=== PATIENT | male | born 1955 | race Caucasian/White ===

== ENCOUNTER 2024-05-01 14:11 | Emergency (ER) | payer MEDICARE, OTHER, SELFPAY ==
[2024-05-01] VITALS (14 sets, daily range): BP systolic 103–149; BP diastolic 54–64; PULSE 71–128; RESP 16–24; TEMP 36.6; O2SAT 24–96
--- NOTE | ~2024-05-01 | CT_ITS ---
EXAMINATION: CT brain wo con DATE: 05/01/2024 16:29 INDICATION: Right-sided spasm. TECHNIQUE: Computed tomography (CT) of the head was performed without intravenous contrast. The mA wa s adjusted according to patient size. Iterative reconstruction technique was employed. The dose-lengt h product was 681.00 mGy-cm. COMPARISON: None FINDINGS: There is no intracranial hemorrhage or acute ischemic infarct. There is a tubulonodular per icallosal lipoma. There are areas of low attenuation in the cerebral white matter with an anterior pr edominance, left worse than right. The ventricles are normal in size. There is mild mucosal thickeni ng in the ethmoid sinuses. The mastoid air cells are normal. The orbits are normal. IMPRESSION: 1. Tubulonodular pericallosal lipoma. 2. Abnormal anterior cerebral white matter, left worse than right. The differential diagnosis include s chronic small vessel ischemic disease, vasogenic edema, and cortical dysplasia. Consider brain MRI without and with contrast. Reviewed, dictated and finalized at location E. IMPRESSION: 1. Tubulonodular pericallosal lipoma. 2. Abnormal anterior cerebral white matter, left worse than right. The differen tial diagnosis includes chronic small vessel ischemic disease, vasogenic edema, and cortical dysplasia. Consider brain MRI without and with contrast.
--- NOTE | ~2024-05-01 | XR_ITS ---
EXAMINATION: XR chest 1V portable DATE: 05/01/2024 15:57 INDICATION: Right-sided spasm. TECHNIQUE: A single frontal view of the chest was obtained on 2 radiographs. COMPARISON: None. FINDINGS: There is mild atelectasis in left lower lung zone. No pleural effusion or pneumothorax. The heart size is normal. IMPRESSION: 1. Mild atelectasis in left lower lung zone. Reviewed, dictated and finalized at location E.
--- NOTE | 2024-05-01 15:17 | ED.GENADULT ---
HPI - General Adult General Chief complaint: Unspecified Stated complaint: sent by pcp for admission, cant walk Time Seen by Provider: 05/01/24 15:17 Source: patient and family Mode of arrival: ambulatory Limitations: no limitations History of Present Illness HPI narrative: PATIENT CAME FROM THE NEUROLOGIST OFFICE INCREASE SPASM OF THE RIGHT SIDE OF HIS BODY INCLUDING RIGHT UPPER EXTREMITY, RIGHT SIDE OF THE TRUNK, AND RIGHT LOWER EXTREMITY. PATIENT HAD THIS HISTORY SINCE 2019, STARTED ON KEP[place] 500 B.I.D. WITH REMARKABLE IMPROVEMENT, THE SPASM STARTED COMING BACK OVER THE LAST 5 DAYS AND GRADUALLY GETTING WORSE LATELY ON AVERAGE 1 EPISODE EVERY 20 MINUTES AND USUALLY LAST UP TO 2 MINUTES. PATIENT REPORTS IF HE GETS A SPELL OF SPASM WHILE STANDING OR WALKING HE COLLAPSE AND CANNOT MAINTAIN STANDING ON HIS RIGHT FOOT. OTHERWISE HIS WALKING IS NORMAL PRIOR AND AFTER THE SPELL. HE DENIES ANY FEVER, CHILLS, NAUSEA, VOMITING, PAIN OR FOCAL NEURO DEFICIT. Related Data Home Medications Medication Instructions Recorded Confirmed calcitriol 0.25 mcg capsule 0.25 mcg PO DAILY 06/07/21 10/30/23 cyanocobalamin (vitamin B-12) 1,000 mcg PO BID 06/07/21 10/30/23 1,000 mcg capsule doxazosin 8 mg tablet 8 mg PO DAILY 06/07/21 10/30/23 ergocalciferol (vitamin D2) 1,250 1,250 mcg PO DAILY 06/07/21 10/30/23 mcg (50,000 unit) capsule furosemide 40 mg tablet 40 mg PO DAILY 06/07/21 10/30/23 lisinopril 20 mg tablet 20 mg PO BID 06/07/21 10/30/23 clonidine HCl 0.2 mg tablet 0.2 mg PO QHS 06/15/22 10/30/23 amlodipine 5 mg tablet 10 mg PO DAILY 12/11/22 10/30/23 chondroitin sulfate A 250 mg mg PO BID 12/11/22 10/30/23 capsule glucosamine sulfate 500 mg tablet 500 mg PO DAILY 12/11/22 10/30/23 (Glucosamine) carvedilol 12.5 mg tablet 12.5 mg PO BID 10/30/23 10/30/23 Allergies Allergy/AdvReac Type Severity Reaction Status Date / Time surgical tape Allergy Intermediate rash Uncoded 05/01/24 14:18 Review of Systems Review of Systems: All systems reviewed & are unremarkable except as noted in HPI and below PMFSH Past Medical History Medical History History of pulmonary embolus (PE) 2016 History of renal calculi 1991 Normal colonoscopy 11/10 Repeat 11/20 Family History Family History Father Malignant neoplasm of prostate Social History Social History Smoking status: Never smoker Second hand tobacco smoke exposure: No Alcohol intake: never Substance use: never Substance use type: does not use Do You Feel Safe in your Home?: Yes Lack of Transportation: No Lack of Food: Never True Current Housing: I Have Housing Concerned About Future Housing: No Difficulty Paying Gas/Electric Bills: No Difficulty Paying for Meds: No Currently Unemployed: No Education: Bachelor's Degree Difficulty w/ Childcare or Family Care: No Living arrangements: with family Occupation/Education: retired Gender identity (if verbalized by the patient): Male Sexual Orientation (if Verbalized by the Patient): Straight or Heterosexual Spiritual care concerns: No Agree to blood products: Yes Exam Narrative: GENERAL APPEARANCE: WELL-DEVELOPED, WELL-NOURISHED SKIN: NORMAL COLOR HEAD: NORMOCEPHALIC, NONTRAUMATIC EYES: CLEAR CONJUNCTIVA ENT: OROPHARYNX NORMAL, EARS NORMAL, NOSE NORMAL NECK: SUPPLE, NONTENDER CHEST AND RESPIRATORY: AIRWAY PATENT, NO RESPIRATORY DISTRESS, NO ACCESSORY MUSCLE USE HEART: REGULAR RATE/RHYTHM ABDOMEN: SOFT, NONTENDER, NO ORGANOMEGALY, QUIET BOWEL SOUNDS VASCULAR: NORMAL PERIPHERAL PULSES, NORMAL CAPILLARY REFILL. MUSCULOSKELETAL: NORMAL RANGE OF MOTION, NONTENDER BACK NEUROLOGIC: ALERT AND ORIENTED ?3, SOFTWARE CONFIGURATION SPECIALIST IS NORMAL TESTED, NO GROSS MOTOR DEFICIT
--- NOTE | 2024-05-01 15:28 | ECG_ITS ---
Test Date: 2024-05-01 15:47:34 Measurements Intervals [place] Rate: 62 P: 39 PA: 214 QRS: -21 QRSD: 103 T: 3 QT: 426 QTc: 433 Interpretive Statements SINUS RHYTHM WITH SINUS ARRHYTHMIA WITH FIRST DEGREE AV BLOCK VOLTAGE CRITERIA FOR LVH BORDERLINE R WAVE PROGRESSION, ANTERIOR LEADS BORDERLINE ST-T WAVE ABNORMALITY- INFERIOR LEADS BASELINE ARTIFACT- I, III, AVR, AVL, AVF BORDERLINE ECG No previous ECG available for comparison Electronically Signed On 05-01-2024 15:57:09 CDT by Jose Alejandro Little D.O.
[2024-05-01 15:55] LABS: Basophils Absolute Auto 0.1 K/mm3 (0.0-0.1); Eosinophils Absolute Auto 0.6 K/mm3 (0-0.3); Eosinophils Percent Auto 4.6 % (0-4.4); Hemoglobin 13.3 g/dL (14.0-18.0); Immature Granulocyte Absolute 0.06 K/mm3 (0.00-0.031); Immature Granulocyte Percent A 0.5 % (0-0.5); Immature Platelet Fraction Pct 7.8 % (0.9-11.2); Lymphocytes Absolute Auto 1.47 K/mm3 (0.9-3.2); Lymphocytes Percent Auto 12.2 % (18.3-44.2); Mean Corpuscular HGB Conc 34.1 g/dl (32-36); Mean Corpuscular Volume 99.7 fl (80-100); Monocytes Absolute Auto 0.9 K/mm3 (0.1-0.6); Monocytes Percent Auto 7.8 % (2.6-8.5); Neutrophils Absolute Auto 8.9 K/mm3 (1.3-6.7); Neutrophils Percent Auto 73.9 % (45.5-73.1); Platelet Count Result 389 k/mm3 (150-375); Red Blood Count 3.91 M/mm3 (4.6-6.20); Red Cell Distribution Width 14.7 % (11.5-14.5); White Blood Count 12.1 K/mm3 (4.5-10.0)
[2024-05-01 16:02] LABS: Alanine Aminotransferase 30 U/L (6-50); Alkaline Phosphatase 132 U/L (38-126); Anion Gap 9 mmol/L (4-12); Aspartate Amino Transferase 33 U/L (17-59); Bilirubin,Total 1.5 mg/dL (0.2-1.3); Blood Urea Nitrogen 61 mg/dL (9-20); Calcium 8.9 mg/dL (8.4-10.2); Carbon Dioxide 30 mmol/L (22-30); Chloride 96 mmol/L (98-107); Estimated CRCL calculation 39 ml/min; Estimated Glomerular Filt Rate 23; Glucose 162 mg/dL (65-110); Potassium 5.2 mmol/L (3.4-5.0); Sodium 135 mmol/L (137-145)
[2024-05-01 16:03] LABS: INR 1.6; Prothrombin Time 19.3 Seconds (11.1-14.7)
[2024-05-01 16:04] LABS: Partial Thromboplastin Time 42.5 Seconds (22.3-36.8)
[2024-05-01] MEDS: LORazepam INJ (*CRX) 2 MG/ML VIAL IV PUSH (18:59)
[2024-05-01] MEDS: levETIRAcetam IV 4,000 MG in DEXTROSE 5% 100 ML 840 MG IVPB (19:01)
--- NOTE | 2024-05-01 22:30 | PC.NURSE ---
per family, the pt has had a mild seizure at 2044, 2132, 2158, and 1025. aware. ativan being ordered
--- NOTE | 2024-05-01 22:46 | PC.NURSE ---
called report to Shaniqua at [facility] at this time
[2024-05-01] MEDS: LORazepam INJ (*CRX) 2 MG/ML VIAL 0.5 MG IV PUSH (23:01)
== END 2024-05-01 23:39 | disposition short-term general hospital (02) ==
PROVIDERS: Emergency Provider Emergency Medicine; PCP Family Medicine Adolescent Medicine
DX: G40.101 Localization-related (focal) (partial) symptomatic epilepsy and epileptic syndromes with simple partial seizures, not intractable, with status epilepticus (principal); Z86.711 Personal history of pulmonary embolism; Z87.442 Personal history of urinary calculi; Z79.899 Other long term (current) drug therapy; R93.0 Abnormal findings on diagnostic imaging of skull and head, not elsewhere classified; D17.79 Benign lipomatous neoplasm of other sites; I44.0 Atrioventricular block, first degree; R94.31 Abnormal electrocardiogram [ECG] [EKG]
CPT/HCPCS: 36415; 70450; 71045; 80053; 85025; 85055; 85610; 85730; 93005; 96365; 96375; 96376; 99285; J1953; J2060